=== PATIENT | female | born 1970 | race Caucasian/White ===

== ENCOUNTER 2020-06-26 01:01 | Emergency (ER) | payer BC ==
[2020-06-26] MEDS ORDERED: predniSONE 20 MG Tab PO ONE (01:37)
[2020-06-26] MEDS ORDERED: Albuterol/Ipratropium 3.0-0.5 MG/3 ML Neb Soln NEB ONE (01:38)
--- NOTE | 2020-06-26 02:20 | EDM.PDOC ---
ED HPI GENERAL MEDICAL PROBLEM - General Chief Complaint: Respiratory Problem Stated Complaint: DIFFICULTY BREATHING Time Seen by Provider: 06/26/20 01:08 Source of Information: Reports: Patient History Limitations: Reports: No Limitations - History of Present Illness INITIAL COMMENTS - FREE TEXT/NARRATIVE: This is a 49-year-old female. She has a history over the last 3 days of increasing shortness of breath. She feels like she cannot breathe. Between 9 and 2 AM this evening she has been using her rescue inhaler every hour. She does feel little bit jittery and her blood pressure is up and her heart rate is up. When she comes to the ER her pulse ox on room air was 100%. She denies any fever any sore throat any nausea vomiting diarrhea no change in taste or smell no headaches no fatigue and no myalgias. She does have a mild cough and some mild congestion along with a shortness of breath. She denies any recent exposure to COVID. He says in the past when he gets like this sometimes she has to be on some steroids to help with her asthma and her seasonal allergies. - Related Data Allergies Allergy/AdvReac Type Severity Reaction Status Date / Time [id number]-Uhp-Yge Reductase Allergy Muscle Verified 06/26/20 01:27 Inhibitor Aches Home Meds: Home Meds Albuterol Sulfate [Albuterol Sulfate Hfa] 06/26/20 [History] Loratadine [Claritin] 10 mg PO 06/26/20 [History] Omeprazole 20 mg PO 06/26/20 [History] Oral Contraceptive. 06/26/20 [History] lisinopriL [Lisinopril] 30 mg PO 06/26/20 [History] predniSONE [Prednisone] 40 mg PO QAM #4 tablet 06/26/20 [Rx] Past Medical History Cardiovascular History: Reports: Hypertension Respiratory History: Reports: Asthma Gastrointestinal History: Reports: GERD Other Endocrine/Metabolic History: goiter Social & Family History - Tobacco Use Smoking Status *Q: Unknown Ever Smoked ED ROS GENERAL - Review of Systems Review Of Systems: See Below Constitutional: Denies: Fever, Chills HEENT: Reports: Rhinitis. Denies: Sinus Problem, Throat Pain Respiratory: Reports: Shortness of Breath, Wheezing, Cough Cardiovascular: Denies: Chest Pain Endocrine: Reports: No Symptoms GI/Abdominal: Denies: Abdominal Pain, Nausea, Vomiting : Reports: No Symptoms Musculoskeletal: Reports: No Symptoms Skin: Reports: No Symptoms Neurological: Reports: No Symptoms Psychiatric: Reports: No Symptoms Hematologic/Lymphatic: Reports: No Symptoms ED EXAM, GENERAL - Physical Exam Exam: See Below Exam Limited By: No Limitations General Appearance: Alert, WD/WN, No Apparent Distress Eye Exam: Bilateral Eye: Normal Inspection Ears: Normal External Exam, Normal Canal, Normal TMs Nose: Normal Inspection, Other (Minimal nasal congestion noted) Throat/Mouth: Normal Inspection, Normal Lips, Normal Oropharynx, Normal Voice, No Airway Compromise Head: Normocephalic Neck: Supple, Other (He does have increased respiratory sounds when I listen to her neck) Respiratory/Chest: No Respiratory Distress, Lungs Clear, Normal Breath Sounds, Other (He has occasional scattered wheezing on duration but there is no prolonged expiratory phase) Cardiovascular: Regular Rate, Rhythm, No Murmur, Tachycardia Back Exam: Full Range of Motion Extremities: Normal Inspection, Normal Range of Motion Neurological: Alert, Oriented Psychiatric: Anxious Skin Exam: Warm, Dry Course - Vital Signs Last Recorded V/S: Last Vital Signs Temp 98.2 F 06/26/20 01:23 Pulse 103 H 06/26/20 01:23 Resp 16 06/26/20 01:23 BP 184/106 H 06/26/20 01:23 Pulse Ox 100 06/26/20 01:49 - Orders/Labs/Meds Orders: Active Orders 24 hr Category Date Time Status RT Aerosol Therapy [RC] ASDIRECTED Care 06/26/20 01:38 Active Meds: Medications Discontinued Medications Generic Name Dose Route Start Last Admin Trade Name Marco Aq PRN Reason Stop Dose Admin Albuterol/Ipratropium 3 ml 06/26/20 01:38 06/26/20 01:49 Duoneb 3.0-0.5 Mg/3 Ml NEB 06/26/20 01:39 3 ml ONETIME ONE Administration Prednisone 40 mg 06/26/20 01:37 06/26/20 02:10 Prednisone PO 06/26/20 01:38 40 mg ONETIME ONE Administration - Re-Assessments/Exams Free Text/Narrative Re-Assessment/Exam: 06/26/20 02:39 Patient states she is breathing much better and feels much calmer. She still has some raspy neck respirations but her lungs appear to be clear presently. She wants to go home. Departure - Departure Time of Disposition: 02:40 Disposition: Home, Self-Care 01 Condition: Good Clinical Impression: Seasonal allergies, Mild asthma exacerbation - Discharge Information *PRESCRIPTION DRUG MONITORING PROGRAM REVIEWED*: Not Applicable *COPY OF PRESCRIPTION DRUG MONITORING REPORT IN PATIENT KRYSTLE: Not Applicable Prescriptions: predniSONE [Prednisone] 40 mg PO QAM #4 tablet Instructions: Asthma, Adult, [id number] Referrals: PCP,Not In Area [Primary Care Provider] - Forms: ED Department Discharge Additional Instructions: Take the prednisone faithfully every morning beginning Saturday for the next 4 days, continue with your albuterol inhaler however a nebulizer would work better, try not to use your inhaler as often as every hour since it will drive your blood pressure up and make you jittery and anxious, recheck with your doctor when you get back home, return to the ER if needed Sepsis Event Note (ED) - Evaluation Sepsis Screening Result: No Definite Risk - Focused Exam Vital Signs: Vital Signs Temp Pulse Resp BP Pulse Ox Pulse Ox 06/26/20 01:49 100 06/26/20 01:23 98.2 F 103 H 16 184/106 H 100 - My Orders Last 24 Hours: My Active Orders 06/26/20 01:38 RT Aerosol Therapy [RC] ASDIRECTED - Assessment/Plan Last 24 Hours: My Active Orders 06/26/20 01:38 RT Aerosol Therapy [RC] ASDIRECTED
== END 2020-06-26 02:49 | disposition home or self-care (01) ==
LOC: JD.ED 01:01
DX: J45.21 Mild intermittent asthma with (acute) exacerbation (principal); R00.0 Tachycardia, unspecified; I10 Essential (primary) hypertension; Z88.8 Allergy status to other drugs, medicaments and biological substances; Z79.899 Other long term (current) drug therapy
CPT/HCPCS: 94640; 99284; J7512; 99283; J7620-GY